=== PATIENT | female | born 1995 | race Two or more races ===

== ENCOUNTER 2017-01-05 16:18 | Emergency (ER) | payer SELFPAY ==
[~2017-01-05] VITALS: Ht 170.2 cm; Wt 65.8 kg
[2017-01-05] MEDS ORDERED: NKM (16:35)
[2017-01-05 16:37] VITALS: BP 122/82
--- NOTE | 2017-01-05 16:58 | Emergency Room Report ---
History of Present Illness General Chief Complaint: Headache Source: Patient Present Illness HPI Patient presents with worst headache of her life. She does have migraines chronically. This began last night as a usual migraine but has progressed during the day where she had to leave work. She feels her head is heavy and has trouble moving it about. She also feels generalized weakness. She has been vomiting all day. Denies any fevers. She has a little bit of photophobia. She's not been able given any medication down at this time usually cpik-evo-mmlkszh medications don't help her migraines and she doesn't take anything for them. She states she has migraines 5 days out of the week. She's having her period at this time doesn't believe she is . She occasionally smokes and drinks socially. The last time she had an alcohol was a week ago. The pain is 10/10 and constant and throbbing, not radiating, more posterior. She's had migraines since age of 11. She was to have workup with CAT scan but was never done. No URI sy, blood thinners, head trauma, rashes, dysuria, change in bowels. Allergies: Coded Allergies: No Known Allergies (Unverified , 01/05/17) Patient History Past Medical History: see triage record Social History: Reports: alcohol use, smoking Social History Narrative works Last Menstrual Period: on period Reviewed Nursing Documentation: PMH: Agreed, PSxH: Agreed Nursing Documentation-PMH Past Medical History: No History, Except For Review of Systems All Other Systems: negative except mentioned in HPI Physical Exam Vital Signs Date Time Temp Pulse Resp B/P Pulse Ox O2 Delivery O2 Flow Rate FiO2 01/05/17 16:32 98.2 71 16 122/82 100 Room Air Sp02 EP Interpretation: reviewed, normal General Appearance: well appearing, no apparent distress, GCS 15, other - in pain Head: normocephalic Eyes: bilateral eye EOMI, bilateral eye PERRL, bilateral eye normal inspection ENT: moist mucus membranes Neck: supple, no meningismus Respiratory: lungs clear, normal breath sounds Cardiovascular #1: regular rate, rhythm Cardiovascular #2: 2+ radial (R) Gastrointestinal: normal inspection, normal bowel sounds, non tender, no mass, non-distended Musculoskeletal: back normal, gait/station normal, normal range of motion Neurologic: alert, oriented x3, pier hand III-XII nml as tested, motor strength/tone normal, DTRs symmetric, sensory intact, cerebellar normal, speech normal Psychiatric: depressed affect Skin: normal inspection, warm/dry Medical Decision Making Diagnostic Impression: Primary Impression: Headache Qualified Codes: R51 - Headache ER Course Patient presents with worst BERG of life. DDx: migraine, tension, bleed, amongst others. Onset inconsistent with bleed. Unable to keep down meds. Worst headache of life. Indication for labs, CT. Treatment with IV hydration, reglan , zofran and benadryl. Improved with meds but still 6/10 pain. Anxious and considering leave without CT. Ativan ordered. Labs unremarkable (slight leukocytosis, + nitrite with no WBC). CT negative. Patient improved. Patient stable for outpatient observation and treatment. Laboratory Tests Test 01/05/17 17:10 White Blood Count 11.9 K/UL (4.8-10.8) H Red Blood Count 4.00 M/UL (4.20-5.40) L Hemoglobin 13.4 G/DL (12.0-16.0) Hematocrit 37.9 % (37.0-47.0) Mean Corpuscular Volume 95 FL (80-99) Mean Corpuscular Hemoglobin 33.5 PG (27.0-31.0) H Mean Corpuscular Hemoglobin Concent 35.3 G/DL (32.0-36.0) Red Cell Distribution Width 12.0 % (11.6-14.8) Platelet Count 232 K/UL (150-450) Mean Platelet Volume 8.0 FL (6.5-10.1) Neutrophils (%) (Auto) 85.9 % (45.0-75.0) H Lymphocytes (%) (Auto) 9.1 % (20.0-45.0) L Monocytes (%) (Auto) 4.0 % (1.0-10.0) Eosinophils (%) (Auto) 0.5 % (0.0-3.0) Basophils (%) (Auto) 0.5 % (0.0-2.0) Erythrocyte Sedimentation Rate 1 MM/HR (0-20) Urine Color Pale yellow Urine Appearance Cloudy Urine pH 8 (4.5-8.0) Urine Specific [place] 1.010 (1.005-1.035) Urine Protein Negative (NEGATIVE) Urine Glucose (UA) Negative (NEGATIVE) Urine Ketones Negative (NEGATIVE) Urine Occult Blood 1+ (NEGATIVE) H Urine Nitrite Positive (NEGATIVE) H Urine Bilirubin Negative (NEGATIVE) Urine Urobilinogen Normal MG/DL (0.0-1.0) Urine Leukocyte Esterase 2+ (NEGATIVE) H Urine RBC 0-2 /HPF (0 - 2) Urine WBC 2-4 /HPF (0 - 2) Urine Squamous Epithelial Cells Many /LPF (NONE/OCC) H Urine Bacteria Many /HPF (NONE) H Urine HCG, Qualitative Negative Sodium Level 138 mEQ/L (135-145) Potassium Level 3.5 mEQ/L (3.4-4.9) Chloride Level 101 mEQ/L (98-107) Carbon Dioxide Level 23 mEQ/L (20-30) Anion Gap 14 (5-15) Blood Urea Nitrogen 7 mg/dL (7-23) Creatinine 0.5 mg/dL (0.5-0.9) Estimate Glomerular Filtration Rate > 60 mL/min (>60) Glucose Level 99 mg/dL (74-106) Calcium Level 8.9 mg/dL (8.6-10.2) Total Bilirubin 0.5 mg/dL (0.0-1.2) Aspartate Amino Transferase (AST) 16 U/L (5-40) Alanine Aminotransferase (ALT) 9 U/L (3-33) Alkaline Phosphatase 49 U/L (35-104) Total Protein 6.7 g/dL (6.6-8.7) Albumin 4.0 g/dL (3.5-5.2) Globulin 2.7 g/dL Albumin/Globulin Ratio 1.4 (1.0-2.7) CT/MRI/US Diagnostic Results CT/MRI/US Diagnostic Results : Imaging Test Ordered: head Impression negative Last Vital Signs Date Time Temp Pulse Resp B/P Pulse Ox O2 Delivery O2 Flow Rate FiO2 01/05/17 16:37 16 122/82 100 Room Air 01/05/17 16:32 98.2 71 Status: improved Disposition: HOME, SELF-CARE Condition: Improved Scripts Ondansetron Odt* (ZOFRAN ODT*) 4 Mg Tab.rapdis 4 MG ORAL Q6H Y for Nausea & Vomiting, #6 TAB 0 Refills Prov: Jb Nevarez M.D. 01/05/17 Tramadol Hcl* (ULTRAM*) 50 Mg Tablet 50 MG ORAL Q6H Y for For Pain, #6 TAB 0 Refills Prov: Jb Nevarez M.D. 01/05/17 Jb Nevarez M.D. Jan 05, 2017 16:58
[2017-01-05] MEDS ORDERED: DiphenhydrAMINE 50mg/ml Inj IVP ONE (17:00)
[2017-01-05] MEDS ORDERED: Metoclopramide 10mg/2ml Inj IVP ONE (17:00)
[2017-01-05 17:27] LABS: MEAN CORPUSCULAR HEMOGLOBIN 33.5 PG (27.0-31.0); MEAN CORPUSCULAR HGB CONC 35.3 G/DL (32.0-36.0); MEAN CORPUSCULAR VOLUME 95 FL (80-99); PLATELET COUNT 232 K/UL (150-450); WHITE BLOOD COUNT 11.9 K/UL (4.8-10.8)
[2017-01-05] MEDS ORDERED: LORazepam Inj 2mg/ml 1ml IV ONE (17:30)
[2017-01-05 17:38] LABS: ALANINE AMINOTRANSFERASE 9 U/L (3-33); ALBUMIN/GLOBULIN RATIO 1.4 (1.0-2.7); ASPARTATE AMINO TRANSFERASE 16 U/L (5-40); CALCIUM 8.9 mg/dL (8.6-10.2); CARBON DIOXIDE 23 mEQ/L (20-30); CREATININE 0.5 mg/dL (0.5-0.9); GLOMERULAR FILTRATION RATE > 60 mL/min (>60); HEMOLYSIS 4; TOTAL PROTEIN 6.7 g/dL (6.6-8.7)
[2017-01-05 17:39] LABS: ANION GAP 14 (5-15); CHLORIDE 101 mEQ/L (98-107); POTASSIUM 3.5 mEQ/L (3.4-4.9); SODIUM 138 mEQ/L (135-145)
[2017-01-05 18:20] LABS: BASOPHILS % (AUTO) 0.5 % (0.0-2.0); EOSINOPHILS % (AUTO) 0.5 % (0.0-3.0); LYMPHOCYTES % (AUTO) 9.1 % (20.0-45.0); NEUTROPHILS % (AUTO) 85.9 % (45.0-75.0)
[2017-01-05 18:33] LABS: ERYTHROCYTE SEDIMENTATION RATE 1 MM/HR (0-20)
[2017-01-05 18:37] LABS: APPEARANCE,URINE CLOUDY; KETONES,URINE NEGATIVE (NEGATIVE); LEUKOCYTE ESTERASE ,URINE 2+ (NEGATIVE); NITRITE,URINE POSITIVE (NEGATIVE); PH,URINE 8 (4.5-8.0); PROTEIN,URINE NEGATIVE (NEGATIVE); UROBILINOGEN,URINE NORMAL MG/DL (0.0-1.0)
[2017-01-05 18:44] LABS: BACTERIA,URINE MANY /HPF; RBC,URINE 0-2 /HPF (0 - 2); SQUAMOUS EPITHELIAL CELL,UR MANY /LPF (NONE/OCC)
[2017-01-05] MEDS ORDERED: levETIRAcetam 500 MG in D5W 110 ML IVPB ONE (19:00)
[2017-01-05 19:15] VITALS: BP 99/64
[2017-01-05] MEDS ORDERED: TRAMADOL HCL50 MG ORAL (19:39)
[2017-01-05] MEDS ORDERED: ZOFRAN ODT4 MG ORAL (19:39)
[2017-01-05 19:52] VITALS: BP 99/64
--- NOTE | 2017-01-06 09:52 | Diagnostic Imaging Report ---
Indication: Headache Technique: Continuous helical CT scanning of the head was performed without intravenous contrast material. Axial and coronal 5 mm sections were generated. Radiation dose was minimized using automated exposure control Dose: Total Dose Length Product - DLP [address] Dose Index - CTDIvol(s) 70.38 mGy. Comparison: None Findings: The ventricular system is normal in size and configuration. There is no shift of midline structures. No abnormal extra-axial fluid collections are noted. There is no evidence of intracerebral bleeding. No other abnormal high or low density areas are noted within the brain. Intact calvarium. Visualized orbits and sinuses are unremarkable. The mastoids are clear Impression: Normal CT scan of the head without contrast material. This agrees with the preliminary interpretation provided overnight by Dr. Gonzales The CT scanner at [facility] is accredited by the [employer] and the scans are performed using protocols designed to limit radiation exposure to as low as reasonably achievable to attain images of sufficient resolution adequate for diagnostic evaluation.
== END 2017-01-05 19:52 | disposition home or self-care (01) ==
LOC: EMR 16:56
DX: R51 Headache (principal); R53.1 Weakness; R11.10 Vomiting, unspecified; H53.149 Visual discomfort, unspecified
CPT/HCPCS: 36415; 70450; 80053; 81003; 81025; 82962; 85025; 85651; 87086; 87181; 96374; 96375; 99284; J1200; J2405; J2765

== ENCOUNTER 2018-04-18 00:05 | Emergency (ER) | payer MEDICAID, OTHER ==
[~2018-04-18] VITALS: Ht 170.2 cm; Wt 66.7 kg
[~2018-04-18 00:05] MED LIST: NKM; TRAMADOL HCL50 MG ORAL; ZOFRAN ODT4 MG ORAL
[2018-04-18 00:12] VITALS: BP 121/80
--- NOTE | 2018-04-18 00:23 | Emergency Room Report ---
History of Present Illness General Chief Complaint: Abdominal Pain Source: Patient, Medical Record Present Illness HPI This is a 22-year-old female with history appendectomy in the past. She presents with chief complaint of abdominal pain. Mostly to the right upper back area. Radiating to the groin area. Onset is gradual been ongoing for a few hours. Pain is now more severe in 9 out of 10. One episode of nausea and vomiting. No hematuria. Does have some increased urination. No fever or chills. Never had this pain before. Has not take anything for it. Allergies: Coded Allergies: No Known Allergies (Unverified , 01/05/17) Patient History Past Medical History: see triage record, old chart reviewed Past Surgical History: appy Pertinent Family History: none Social History: Denies: smoking Last Menstrual Period: 03/29/18 Now: No : 1 Para: 1 Reviewed Nursing Documentation: PMH: Agreed; PSxH: Agreed Nursing Documentation-PMH Past Medical History: No History, Except For Review of Systems Eye: Denies: eye pain, blurred vision ENT: Denies: ear pain, nose congestion, throat swelling Respiratory: Denies: cough, shortness of breath Cardiovascular: Denies: chest pain, palpitations Gastrointestinal: Reports: abdominal pain, nausea, vomiting; Denies: diarrhea Musculoskeletal: Denies: back pain, joint pain Skin: Denies: rash Neurological: Denies: headache, numbness Endocrine: Denies: increased thirst, increased urine Hematologic/Lymphatic: Denies: easy bruising All Other Systems: negative except mentioned in HPI Physical Exam Vital Signs Date Time Temp Pulse Resp B/P (MAP) Pulse Ox O2 Delivery O2 Flow Rate FiO2 04/18/18 00:08 99.0 94 14 123/81 98 Room Air 99.0 vitals normal Sp02 EP Interpretation: reviewed, normal General Appearance: well appearing, no apparent distress, alert Head: normocephalic, atraumatic Eyes: bilateral eye PERRL, bilateral eye EOMI ENT: hearing grossly normal, normal pharynx Neck: full range of motion, supple, no meningismus Respiratory: chest non-tender, lungs clear, normal breath sounds Cardiovascular #1: regular rate, rhythm, no murmur Gastrointestinal: normal bowel sounds, no mass, no organomegaly, no bruit, non- distended, tenderness - mild right upper quadrant Genitourinary: no CVA tenderness Musculoskeletal: back normal, gait/station normal, normal range of motion Psychiatric: mood/affect normal Skin: warm/dry Medical Decision Making Diagnostic Impression: Primary Impression: Pyelonephritis Additional Impression: Abdominal pain Qualified Codes: R10.9 - Unspecified abdominal pain ER Course She presents with right-sided pain. Urine positive for infection. CT scan negative. We'll treat as pyelonephritis. No evidence of surgical abdomen or obstruction. CT/MRI/US Diagnostic Results CT/MRI/US Diagnostic Results : Imaging Test Ordered: CT abdomen pelvis Impression negative per radiologist Last Vital Signs Date Time Temp Pulse Resp B/P (MAP) Pulse Ox O2 Delivery O2 Flow Rate FiO2 04/18/18 00:08 99.0 94 14 123/81 98 Room Air 99.0 Status: improved Disposition: HOME, SELF-CARE Condition: Improved Scripts Hydrocodone/Acetaminophen 5-325* (HYDROCODONE/ACETAMINOPHEN 5-325*) 1 Each Tablet 1 TAB ORAL Q6H PRN for For Pain, #20 TAB 0 Refills Prov: SAMIA DAUGHERTY M.D. 04/18/18 Cephalexin* (KEFLEX*) 500 Mg Capsule 500 MG ORAL TID, #21 CAP Prov: SAMIA DAUGHERTY M.D. 04/18/18 Additional Instructions: Follow-up your doctor in 7 days. Return if symptom worsen. SAMIA DAUGHERTY M.D. Apr 18, 2018 00:23
[2018-04-18] MEDS ORDERED: Morphine Sulfate 4mg/ml Inj (IV USE ONLY) IVP ONE (00:30)
[2018-04-18 01:08] LABS: ANION GAP 8 mmol/L (5-15); BLOOD UREA NITROGEN 8 mg/dL (7-18); CALCIUM 9.1 MG/DL (8.5-10.1); CARBON DIOXIDE 27 MMOL/L (21-32); CHLORIDE 103 MMOL/L (98-107); CREATININE 0.6 MG/DL (0.55-1.30); POTASSIUM 3.7 MMOL/L (3.5-5.1); SODIUM 138 MMOL/L (136-145)
[2018-04-18 01:11] LABS: APPEARANCE,URINE SLIGHTLY CLOUDY; BILIRUBIN, URINE NEGATIVE (NEGATIVE); COLOR,URINE PALE YELLOW; GLUCOSE, URINE (UA) NEGATIVE (NEGATIVE); KETONES,URINE NEGATIVE (NEGATIVE); LEUKOCYTE ESTERASE ,URINE 3+ (NEGATIVE); NITRITE,URINE NEGATIVE (NEGATIVE); PH,URINE 6.5 (4.5-8.0); PROTEIN,URINE 2+ (NEGATIVE); UROBILINOGEN,URINE NORMAL MG/DL (0.0-1.0)
[2018-04-18 01:12] LABS: ALANINE AMINOTRANSFERASE 25 U/L (12-78); ALBUMIN 4.1 G/DL (3.4-5.0); ALBUMIN/GLOBULIN RATIO 1.1 (1.0-2.7); ALKALINE PHOSPHATASE 64 U/L (46-116); ASPARTATE AMINO TRANSFERASE 17 U/L (15-37); BILIRUBIN,TOTAL 0.4 MG/DL (0.2-1.0)
[2018-04-18 01:13] LABS: BASOPHILS % (AUTO) 0.8 % (0.0-2.0); EOSINOPHILS % (AUTO) 0.9 % (0.0-3.0); HEMATOCRIT 44.2 % (37.0-47.0); HEMOGLOBIN 14.8 G/DL (12.0-16.0); LYMPHOCYTES % (AUTO) 17.5 % (20.0-45.0); MEAN CORPUSCULAR VOLUME 92 FL (80-99); MONOCYTES % (AUTO) 6.7 % (1.0-10.0); NEUTROPHILS % (AUTO) 74.2 % (45.0-75.0); PLATELET COUNT 316 K/UL (150-450); RED BLOOD COUNT 4.83 M/UL (4.20-5.40); RED CELL DISTRIBUTION WIDTH 11.1 % (11.6-14.8); WHITE BLOOD COUNT 15.3 K/UL (4.8-10.8)
[2018-04-18] MEDS ORDERED: cefTRIAXone 1 GM in NS 55 ML IVPB ONE (01:15)
[2018-04-18] MEDS ORDERED: Ketorolac 30mg Inj IV ONE (02:15)
[2018-04-18] MEDS ORDERED: Ketorolac 30mg Inj ONE (02:18)
[2018-04-18 02:37] VITALS: BP 120/78
[2018-04-18] MEDS ORDERED: HYDROCODON-ACE1 EA15 ORAL (03:11)
[2018-04-18] MEDS ORDERED: CEPHALEXIN500 MG ORAL (03:11)
[2018-04-18 03:30] VITALS: BP 120/78
[2018-04-18] MEDS ORDERED: dilTIAZem HCl 25mg/5ml Inj ONE (05:06)
--- NOTE | 2018-04-18 09:15 | Diagnostic Imaging Report ---
Indication: Abdominal pain/right flank pain Technique: Noncontrast CT of the abdomen and pelvis utilizing automated exposure control. Axial, sagittal and coronal reformats presented. CT dose: Total DLP 695.26 mGycm; CTDI vol 12.77 mGy Comparison: None Findings: Please note that evaluation of the abdominal and pelvic viscera and vascular structures is limited without the use of intravenous and oral contrast. Within these limitations the following observations are made: Minimal dependent atelectatic changes noted in the posterior lower lobes bilaterally. Heart size within normal limits. No pericardial effusion. Noncontrast evaluation of the liver, gallbladder, spleen, adrenal glands and pancreas grossly unremarkable. Kidneys symmetric in size. No urinary tract stone or hydronephrosis identified bilaterally. No urinary tract stones. Bladder unremarkable. Probable small bilateral ovarian likely physiologic cysts. Uterus grossly unremarkable. There is no free intraperitoneal air. There is evidence of prior appendectomy. There is no small bowel obstruction. No focal bowel wall thickening appreciated however sensitivity limited without oral contrast. There is abundant stool in the colon. Abdominal aorta is normal in caliber. No bulky/conglomerate lymphadenopathy identified. No acute osseous abnormality. Tiny fat-containing umbilical hernia. IMPRESSION: Limited exam without intravenous and oral contrast. Within these limitations: * Abundant stool in the colon raising question for constipation. No small bowel obstruction or definite abnormal bowel wall thickening. * Status post appendectomy. * No urinary tract stone or obstructive uropathy. This corresponds with the statrad preliminary report. The CT scanner at [facility] is accredited by the [employer] and the scans are performed using protocols designed to limit radiation exposure to as low as reasonably achievable to attain images of sufficient resolution adequate for diagnostic evaluation.
== END 2018-04-18 03:30 | disposition home or self-care (01) ==
LOC: EMR 00:20
DX: N12 Tubulo-interstitial nephritis, not specified as acute or chronic (principal)
CPT/HCPCS: 36415; 74176; 80053; 81003; 81025; 83690; 85025; 87086; 87181; 96361; 96365; 96375; 99284; J0696; J1885; J2270; J2405

== ENCOUNTER 2018-05-14 23:11 | Emergency (ER) | payer OTHER ==
[~2018-05-14] VITALS: Ht 170.2 cm; Wt 65.8 kg
[~2018-05-14 23:11] MED LIST changes: +CEPHALEXIN500 MG ORAL; +HYDROCODON-ACE1 EA15 ORAL
[2018-05-15] VITALS: BP 111/72
[2018-05-15 00:20] LABS: BASOPHILS % (AUTO) 0.9 % (0.0-2.0); EOSINOPHILS % (AUTO) 1.2 % (0.0-3.0); HEMATOCRIT 40.1 % (37.0-47.0); HEMOGLOBIN 14.4 G/DL (12.0-16.0); MEAN CORPUSCULAR VOLUME 88 FL (80-99); MONOCYTES % (AUTO) 6.2 % (1.0-10.0); NEUTROPHILS % (AUTO) 65.7 % (45.0-75.0); PLATELET COUNT 314 K/UL (150-450); RED BLOOD COUNT 4.54 M/UL (4.20-5.40); RED CELL DISTRIBUTION WIDTH 10.4 % (11.6-14.8); WHITE BLOOD COUNT 10.9 K/UL (4.8-10.8)
[2018-05-15 00:29] LABS: ANION GAP 10 mmol/L (5-15); BLOOD UREA NITROGEN 6 mg/dL (7-18); CALCIUM 9.2 MG/DL (8.5-10.1); CARBON DIOXIDE 26 MMOL/L (21-32); CHLORIDE 101 MMOL/L (98-107); CREATININE 0.6 MG/DL (0.55-1.30); POTASSIUM 3.3 MMOL/L (3.5-5.1); SODIUM 137 MMOL/L (136-145)
--- NOTE | 2018-05-15 00:34 | Emergency Room Report ---
History of Present Illness General Chief Complaint: Vomiting Source: Patient Present Illness HPI This patient c/o mild-moderate lower abd cramping, light vaginal bleeding today. She found out from PMD two days ago that she is , has not had first forensic structural engineer appt. yet. Believes her LMP early March or late February. Has one child. No PMH Allergies: Coded Allergies: No Known Allergies (Unverified , 01/05/17) Patient History Last Menstrual Period: unk Nursing Documentation-PMH Past Medical History: No Stated History Review of Systems Constitutional: Reports: no symptoms Eye: Reports: no symptoms ENT: Reports: no symptoms Respiratory: Reports: no symptoms Cardiovascular: Reports: no symptoms Gastrointestinal: Reports: no symptoms Genitourinary: Reports: no symptoms Musculoskeletal: Reports: no symptoms Skin: Reports: no symptoms Psychiatric: Reports: no symptoms Neurological: Reports: no symptoms Endocrine: Reports: no symptoms Hematologic/Lymphatic: Reports: no symptoms Allergic: Reports: no symptoms All Other Systems: negative except mentioned in HPI Physical Exam Vital Signs Date Time Temp Pulse Resp B/P (MAP) Pulse Ox O2 Delivery O2 Flow Rate FiO2 05/14/18 23:17 97.8 88 16 108/70 98 Room Air 97.9 Sp02 EP Interpretation: reviewed, normal General Appearance: normal inspection, well appearing, no apparent distress, alert, GCS 15, non-toxic Head: normocephalic, atraumatic Eyes: bilateral eye normal inspection, bilateral eye PERRL, bilateral eye EOMI ENT: normal ENT inspection, hearing grossly normal, normal pharynx, no angioedema, normal voice, moist mucus membranes Neck: normal inspection, full range of motion, supple, no meningismus, no bony tend Respiratory: normal inspection, lungs clear, normal breath sounds, no rhonchi, no respiratory distress, no retraction, no accessory muscle use, no wheezing Cardiovascular #1: normal inspection, regular rate, rhythm, no edema Gastrointestinal: normal inspection, normal bowel sounds, soft, no mass, non- distended, other - mild RLQ tender Musculoskeletal: gait/station normal, normal range of motion Neurologic: normal inspection, alert, oriented x3, responsive, motor strength/ tone normal Psychiatric: normal inspection, judgement/insight normal, memory normal Suicide Risk Assessment: Suicidal Ideation: No Had intent to initiate attempt: No Pt's plan for suicide attempt: No Has means to complete attempt: No Skin: normal inspection, normal color, no rash, warm/dry Medical Decision Making Diagnostic Impression: Primary Impression: Threatened ER Course DD: ectopic , threatened , missed , inevitable , retained POC. US tech 8.5 week IUP B-HCG 89k Last Vital Signs Date Time Temp Pulse Resp B/P (MAP) Pulse Ox O2 Delivery O2 Flow Rate FiO2 05/15/18 00:00 97.9 72 16 111/72 98 Room Air 97.9 Status: improved Disposition: HOME, SELF-CARE Condition: Stable Scripts Ondansetron (Zofran) 4 Mg Tablet 4 MG ORAL Q6H PRN for Nausea & Vomiting, #30 TAB 0 Refills Prov: Surya Merlos M.D. 05/15/18 Patient Instructions: Threatened Miscarriage, [id number] Surya Merlos M.D. May 15, 2018 00:34
[2018-05-15 00:35] LABS: INR 1.1 (0.9-1.1)
[2018-05-15] MEDS ORDERED: ZOFRAN4 MG ORAL (01:21)
[2018-05-15 01:40] VITALS: BP 111/72
--- NOTE | 2018-05-16 08:37 | Diagnostic Imaging Report ---
Indication: Pelvic pain, patient Technique: Transabdominal and transvaginal images Comparison: none Findings: Uterus measures 7.9 cm length by 5 cm AP. Within the endometrium, there is a gestational sac. This demonstrates a pole with positive heart activity, heart rate 189 bpm. No subchorionic hemorrhage demonstrated. [place]-rump length is 6 cm, corresponding to an estimated gestational age of 6 weeks 3 days. The right ovary measures 2.9 cm in length. The left ovary measures 2 cm in length. No adnexal mass demonstrated. No free cul-de-sac fluid. Impression: 6 week 3 day, by crown-rump length measurement, 11. . No unusual features
== END 2018-05-15 01:40 | disposition home or self-care (01) ==
LOC: EMR 05-15 00:40
DX: O20.0 Threatened abortion (principal); Z3A.08 8 weeks gestation of pregnancy
CPT/HCPCS: 36415; 76801; 76830; 80048; 84702; 85025; 85610; 86850; 86900; 86901; 96374; 99284; J2405

== ENCOUNTER 2018-06-16 16:36 | Emergency (ER) | payer OTHER ==
[~2018-06-16] VITALS: Ht 167.6 cm; Wt 68.0 kg
[~2018-06-16 16:36] MED LIST changes: +ZOFRAN4 MG ORAL
[2018-06-16 17:14] VITALS: BP 105/76
[2018-06-16] MEDS ORDERED: Metoclopramide 10mg/2ml Inj IVP ONE (17:15)
[2018-06-16 18:37] LABS: ANION GAP 11 mmol/L (5-15); BLOOD UREA NITROGEN 6 mg/dL (7-18); CALCIUM 8.7 MG/DL (8.5-10.1); CARBON DIOXIDE 23 MMOL/L (21-32); CHLORIDE 102 MMOL/L (98-107); CREATININE 0.4 MG/DL (0.55-1.30); POTASSIUM 3.4 MMOL/L (3.5-5.1); SODIUM 135 MMOL/L (136-145)
[2018-06-16 20:51] VITALS: BP 105/76
--- NOTE | 2018-06-16 22:59 | Emergency Room Report ---
History of Present Illness General Chief Complaint: General Complaint Source: Patient Present Illness HPI 22-year-old female presents to the emergency department complaining of persistent nausea and vomiting during . Patient reports she had similar symptoms previously and was given Zofran for she is out of. Patient denies pain, fevers, chills, vaginal bleeding or discharge, or abdominal cramping. Patient reports that she feels "dehydrated" and very dry. Patient states she has been having a difficult time keeping down fluids or food. Patient reports that this is her second . She denies fevers, chills, recent travel or ill contacts with similar symptoms. Patient denies constipation or diarrhea. Denies blood in the vomit or stool. Denies chest pain , palpitations, dizziness or syncope. Allergies: Coded Allergies: No Known Allergies (Unverified , 01/05/17) Patient History Past Medical History: see triage record Last Menstrual Period: 03/30/2018 Now: Yes : 2 Para: 1 Reviewed Nursing Documentation: PMH: Agreed; PSxH: Agreed Nursing Documentation-PMH Past Medical History: No History, Except For Review of Systems All Other Systems: negative except mentioned in HPI Physical Exam Vital Signs Date Time Temp Pulse Resp B/P (MAP) Pulse Ox O2 Delivery O2 Flow Rate FiO2 06/16/18 16:57 98.4 97 14 105/76 98 Room Air 98.4 Sp02 EP Interpretation: reviewed, normal General Appearance: no apparent distress, alert, GCS 15, non-toxic Head: normocephalic, atraumatic Eyes: bilateral eye normal inspection, bilateral eye PERRL ENT: hearing grossly normal, normal voice Neck: full range of motion Respiratory: lungs clear, normal breath sounds, speaking full sentences Cardiovascular #1: regular rate, rhythm, no edema Gastrointestinal: normal bowel sounds, non tender, soft, non-distended Genitourinary: normal inspection, no CVA tenderness Musculoskeletal: back normal, gait/station normal, normal range of motion, non- tender Neurologic: alert, oriented x3, responsive, motor strength/tone normal, sensory intact, normal gait, speech normal, grossly normal Psychiatric: judgement/insight normal Skin: normal color, no rash, warm/dry, well hydrated Medical Decision Making PA Attestation Dr. Savage is my supervising Physician whom patient management has been discussed with. Diagnostic Impression: Primary Impression: Encounter for generalized patient complaints Additional Impressions: Dehydration during Vomiting Qualified Codes: R11.2 - Nausea with vomiting, unspecified ER Course 22-year-old female presents to the emergency department complaining of persistent nausea and vomiting during . Patient reports she had similar symptoms previously and was given Zofran for she is out of. Patient denies pain, fevers, chills, vaginal bleeding or discharge, or abdominal cramping. Patient reports that she feels "dehydrated" and very dry. Patient states she has been having a difficult time keeping down fluids or food. Patient reports that this is her second . She denies fevers, chills, recent travel or ill contacts with similar symptoms. Patient denies constipation or diarrhea. Denies blood in the vomit or stool. Denies chest pain , palpitations, dizziness or syncope. Ddx considered but are not limited to GE, SBO, Cyclical Vomiting secondary to THC, * , hyperemesis gravidum just to name a few. Vital signs: pt. is afebrile, H&PE are most consistent with GE most likely viral in etiology, no evidence to suggest acute abdomen on physical exam. ORDERS: - BMP ED INTERVENTIONS: -1000 NS iv hydration, -Reglan IV -- -PT. became anxious and irritable once her visitor came into the room. Pt. requested to be d/c, labs are not resulted and I encouraged pt. to stay for full evaluation, oral fluid challenge, and disposition determination. Pt. requests to leave AMA. DISPOSITION: Pt. Requests AMA. - At this time the patient is requesting to leave AGAINST MEDICAL ADVICE. I believe that this patient has the capacity to make decisions on her own. I discussed with the patient the risks of leaving AMA. Some of these risks include delay in diagnosis and treatment, as well as worsening of symptoms, organ damage, and permanent disability or even of her or her child. After discussing these risks with the patient. She continues to express Her want and intention to leave AGAINST MEDICAL ADVICE. I encouraged the patient to return at any time, and that she will be welcome here in the emergency department to continue medical management. Last Vital Signs Date Time Temp Pulse Resp B/P (MAP) Pulse Ox O2 Delivery O2 Flow Rate FiO2 06/16/18 20:51 98.4 14 105/76 98 Room Air 98.4 06/16/18 16:57 97 Disposition: AGAINST MEDICAL ADVICE Condition: Unknown Referrals: [facility],REFERR[facility] (PCP) Patient Instructions: Eating Plan for Hyperemesis Gravidarum, Hyperemesis Gravidarum Additional Instructions: You are leaving AMA, before results of your diagnostic lab work are available. This can cause delayed diagnosis as well as treatment, and ultimately leading up to worsening of symptoms, damage to organs, permanent disability or even . You are encouraged to return to the ER at any time if you want to continue your evaluation Hellen Dukes Jun 16, 2018 22:59
== END 2018-06-16 18:09 | disposition home or self-care (01) ==
LOC: EMR 17:16
DX: O21.9 Vomiting of pregnancy, unspecified (principal); E86.0 Dehydration; Z3A.00 Weeks of gestation of pregnancy not specified; Z37.9 Outcome of delivery, unspecified
CPT/HCPCS: 36415; 80048; 96361; 96374; 99284; J2765; 96360

== ENCOUNTER 2019-06-03 00:37 | Emergency (ER) | payer MEDICAID, OTHER ==
[~2019-06-03] VITALS: Ht 167.6 cm; Wt 59.4 kg
[2019-06-03 01:00] VITALS: BP 106/68
--- NOTE | 2019-06-03 01:00 | NUR ---
ED Nurse Note: Pt ambulated to ED from home c/o rectal pain and bleeding, pt reports hx of constipation. VSS
[2019-06-03] MEDS ORDERED: COLACE100 MG ORAL (01:36)
[2019-06-03 01:40] VITALS: BP 106/68
--- NOTE | 2019-06-03 01:43 | NUR ---
ER DISCHARGE NOTE: Patient is cleared to be discharged per ERMD, pt is aox4, on room air, with stable vital signs. pt was given dc and prescription instructions, pt was able to verbalize understanding, pt id band removed. pt is able to ambulate with steady gait. pt took all belongings.
--- NOTE | 2019-06-03 21:11 | Emergency Room Report ---
History of Present Illness General Chief Complaint: Pain Source: Patient Present Illness Allergies: Coded Allergies: No Known Allergies (Unverified , 01/05/17) Patient History Last Menstrual Period: 05/15 Now: No : 2 Para: 2 Reviewed Nursing Documentation: PMH: Agreed; PSxH: Agreed Physical Exam Vital Signs Date Time Temp Pulse Resp B/P (MAP) Pulse Ox O2 Delivery O2 Flow Rate FiO2 06/03/19 00:41 98.2 97 16 106/68 (81) 98 Room Air General Appearance: well appearing, no apparent distress Head: normocephalic, atraumatic ENT: hearing grossly normal, normal voice Neck: full range of motion, supple Respiratory: no respiratory distress, speaking full sentences Gastrointestinal: normal inspection, non tender, soft Rectal: normal exam Genitourinary: normal inspection, cervix normal Musculoskeletal: normal inspection, no calf tenderness Neurologic: normal inspection, alert, oriented x3, normal gait Psychiatric: normal inspection, judgement/insight normal, mood/affect normal Skin: no rash Medical Decision Making Diagnostic Impression: Primary Impression: Rectal bleeding Additional Impression: Constipation Last Vital Signs Date Time Temp Pulse Resp B/P (MAP) Pulse Ox O2 Delivery O2 Flow Rate FiO2 06/03/19 01:40 98.2 81 16 106/68 98 Room Air Status: improved Disposition: HOME, SELF-CARE Condition: Stable Scripts Docusate Sodium* (COLACE*) 100 Mg Capsule 100 MG ORAL TWICE A DAY, #30 CAP Prov: Fidel Jamison MD 06/03/19 Referrals: [facility],REFERRING (PCP) Patient Instructions: Anal Fissure, Adult Fidel Jamison MD Jun 03, 2019 21:11
== END 2019-06-03 01:40 | disposition home or self-care (01) ==
LOC: EMR 00:58
DX: K62.5 Hemorrhage of anus and rectum (principal); K59.00 Constipation, unspecified
CPT/HCPCS: 99282